=== PATIENT | male | born 1965 ===

== ENCOUNTER 2022-08-02 06:42 | Day surgery (SDC) | payer OTHER | END 2022-08-02 11:30 | disposition home or self-care (01) | LOC: AMB-ENDOS 06:42 | PROVIDERS: ATTEND Surgery | DX: D12.0 Benign neoplasm of cecum (principal); D12.8 Benign neoplasm of rectum; K92.1 Melena; Z88.0 Allergy status to penicillin; Z20.822 Contact with and (suspected) exposure to COVID-19 ==